=== PATIENT | male | born 1990 | race Caucasian/White ===

== ENCOUNTER 2020-03-27 10:32 | Emergency (ER) | payer BC ==
[~2020-03-27] VITALS: Ht 177.8 cm; Wt 92.5 kg
[2020-03-27] MEDS ORDERED: SODIUM CHLORIDE 0.9% 1000ML 1,000 ML IV STA (10:44)
[2020-03-27] MEDS ORDERED: ONDANSETRON HCL INJ 2MG/ML 2ML 2 MG/ML VIAL IV ONE (10:45)
[2020-03-27] MEDS ORDERED: FAMOTIDINE 20 MG/2 ML VIAL IV ONE ×2 (10:45→11:02)
[2020-03-27] MEDS ORDERED: KETOROLAC TROMETHAMINE 30 MG/ML VIAL IV ONE (10:45)
--- NOTE | 2020-03-27 11:00 | Emergency Department Note ---
History of Present Illnes History of Present Illness Chief Complaint: Abdominal Complaints History of Present Illness This is a 29 year old male c/o LUQ pain for 24 hours, getting worse, brought over by his boss . 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 Any updates have been documented here. Past Medical History Recent Fever: No Clinical Suspicion of Infectio: No New/Unexplained Change in Ment: No Past Medical History: None Past Surgical History: Back Surgery Social History Physically hurt or threatened: No Review of Systems Review of Systems Constitutional: Reports no symptoms EENTM: Reports no symptoms Cardiovascular: Reports no symptoms Respiratory: Reports no symptoms Gastrointestinal: Reports abdominal pain, Reports nausea Genitourinary: Reports no symptoms Musculoskeletal: Reports no symptoms Integumentary: Reports no symptoms Neurological: Reports no symptoms Psychological: Reports no symptoms Endocrine: Reports no symptoms Hematological/Lymphatic: Reports no symptoms Physical Exam Related Data Allergies: Coded Allergies: No Known Allergies (Unverified , 03/27/20) Triage Vital Signs Vital Signs Date Time Temp Pulse Resp B/P (MAP) Pulse Ox O2 Delivery O2 Flow Rate FiO2 03/27/20 10:40 97.4 83 16 128/73 99 Room Air Vital signs reviewed: Yes Physical Exam CONSTITUTIONAL Constitutional: Present well-developed, Present well-nourished HENT HENT: Present normocephalic, Present atraumatic, Present oropharynx clear/moist, Present nose normal HENT L/R: Present left ext ear normal, Present right ext ear normal EYES Eyes: Reports PERRL, Reports conjunctivae normal NECK Neck: Present ROM normal PULMONARY Pulmonary: Present effort normal, Present breath sounds normal CARDIOVASCULAR Cardiovascular: Present regular rhythm, Present heart sounds normal, Present capillary refill normal, Present normal rate GASTROINTESTINAL Abdominal: Present tender (LUQ pain, superficial tenderness) GENITOURINARY Genitourinary: Present exam deferred SKIN Skin: Present warm, Present dry MUSCULOSKELETAL Musculoskeletal: Present ROM normal NEUROLOGICAL Neurological: Present alert, Present oriented x 3, Present no gross motor or sensory deficits PSYCHOLOGICAL Psychological: Present mood/affect normal, Present judgement normal Results Laboratory Lab results reviewed: Yes Laboratory comments cbc and chemistries are ok Imaging Imaging results reviewed: Yes Assessment & Plan Medical Decision Making MDM pancreatitis, colitis, SBO, spleen ruptured Reassessment Reassessment time: 12:29 Reassessment minimal pain Assessment & Plan Final Impression: (1) Left upper quadrant abdominal pain (2) Nausea alone Depart Disposition: HOME, SELF-CARE Last Vital Signs Date Time Temp Pulse Resp B/P (MAP) Pulse Ox O2 Delivery O2 Flow Rate FiO2 03/27/20 10:40 97.4 83 16 128/73 99 Room Air Home Meds Active Scripts Acetaminophen/Codeine* (TYLENOL # 3*) 1 Ea Tab, 1 TAB PO Q4HR PRN for pain or cough, #30 Prov:MADISON LARA MD 03/27/20 Ondansetron Hcl* (ZOFRAN*) 4 Mg Tablet, 4 MG PO Q6H for nausea vomiting, #20 Prov:MADISON LARA MD 03/27/20 Famotidine (FAMOTIDINE) 20 Mg Tab, 20 MG PO BID, #30 TAB Prov:MADISON LARA MD 03/27/20 Medications in the ED Ondansetron HCl 8 mg ONCE ONCE IV ; Start 03/27/20 at 10:45; Stop 03/27/20 at 10:51; Status DC Famotidine 20 mg ONCE ONCE IV ; Start 03/27/20 at 10:45; Stop 03/27/20 at 10:51; Status DC Sodium Chloride 1,000 ml @ 0 mls/hr Q0M STAT IV ; Start 03/27/20 at 10:44; Stop 03/27/20 at 10:47; Status DC Ketorolac Tromethamine 30 mg ONCE ONCE IV ; Start 03/27/20 at 10:45; Stop 03/27/20 at 10:51; Status DC Ondansetron HCl 4 mg STK-MED ONCE .ROUTE ; Start 03/27/20 at 11:02; Stop 03/27/20 at 10:55; Status DC Ketorolac Tromethamine 30 mg STK-MED ONCE .ROUTE ; Start 03/27/20 at 11:02; Stop 03/27/20 at 10:55; Status DC Sodium Chloride 1,000 ml @ ud STK-MED ONCE .ROUTE ; Start 03/27/20 at 11:02; Stop 03/27/20 at 10:55; Status DC Famotidine 20 mg STK-MED ONCE IV ; Start 03/27/20 at 11:02; Stop 03/27/20 at 10:55; Status DC Physician Attestation Provider Attestation no acute abdomen, probably musculoskeletal pain MADISON LARA MD Mar 27, 2020 11:00
[2020-03-27] MEDS ORDERED: SODIUM CHLORIDE 0.9% 1000ML 1,000 ML ONE (11:02)
[2020-03-27] MEDS ORDERED: KETOROLAC TROMETHAMINE 30 MG/ML VIAL ONE (11:02)
[2020-03-27] MEDS ORDERED: ONDANSETRON HCL INJ 2MG/ML 2ML 2 MG/ML VIAL ONE (11:02)
[2020-03-27] MEDS ORDERED: DIATRIZOATE MEGL/DIATRIZOA SOD 30 ML BTL PO ONE (11:05)
[2020-03-27] MEDS ORDERED: IOPAMIDOL 370 MG/ML 200 ML INFUS..BTL INJ ONE (11:06)
[2020-03-27] MEDS ORDERED: SODIUM CHLORIDE 0.9% 50ML 50 ML ONE (11:06)
--- NOTE | 2020-03-27 12:27 | Diagnostic Imaging Report ---
CT of the abdomen and pelvis, with contrast, 03/27/2020. History: Left upper quadrant pain. Comparison: None available. Technique: Multidetector CT scanning of the abdomen and pelvis was performed from the level of the lung bases to the inferior pubic rami after intravenous and oral administration of contrast. Coronal and sagittal multiplanar reformations were obtained. RADIATION DOSE: Total DLP: 764 mGy*cm Dose modulation, iterative reconstruction, and/or weight based adjustment of the mA/kV was utilized to reduce the radiation dose to as low as reasonably achievable. Discussion: LUNG BASES: No visualized abnormalities. ABDOMEN: The liver, gallbladder, biliary tree, spleen, pancreas, adrenal glands, and kidneys are normal. The hepatic vein, portal vein, and splenic vein are patent. The abdominal aorta is within normal limits for size. The stomach, small bowel, and large bowel are unremarkable. Retained food is noted within the stomach. There is no bowel dilatation. The appendix is visualized and is normal. There is no evidence of adenopathy or free fluid. PELVIS: The bladder, prostate, and seminal vesicles are normal in appearance. There is no evidence of free fluid or adenopathy. BONES AND SOFT TISSUES: No abnormality. IMPRESSION: Normal CT of the abdomen and pelvis. No evidence of cholelithiasis, nephrolithiasis, appendicitis, or bowel obstruction. Signed by: Ceferino Dang on 03/27/2020 12:24 PM
[2020-03-27] MEDS ORDERED: ZOFRAN4 MG PO (12:37)
[2020-03-27] MEDS ORDERED: TYLENOL # 31 EA PO (12:37)
[2020-03-27] MEDS ORDERED: FAMOTIDINE20 MG PO (12:37)
[2020-03-27 12:47] VITALS: BP 120/74
== END 2020-03-27 12:46 | disposition home or self-care (01) ==
LOC: FSED 10:43
DX: R10.12 Left upper quadrant pain (principal); R11.0 Nausea
CPT/HCPCS: 36415; 74177; 80053; 81003; 83690; 85025; 96374; 96375; 99284; J1885; J2405; J7030; Q9967